=== PATIENT | female | born 1980 | race Caucasian/White ===

== ENCOUNTER → 2020-10-31 | Outpatient (CLI) | payer BC ==
[~2020-10-31] MED LIST: CETI10TA74 PO; ONDA4TAB7 PO; OXYC-325 PO; SUMA100T3 PO
== END ==
LOC: LAB 08:04
PROVIDERS: ATTEND Surgery
DX: Z01.812 Encounter for preprocedural laboratory examination (principal); K82.8 Other specified diseases of gallbladder; K82.4 Cholesterolosis of gallbladder; Z20.822 Contact with and (suspected) exposure to COVID-19
CPT/HCPCS: U0003

== ENCOUNTER 2020-11-04 07:19 | Day surgery (SDC) | payer BC ==
[~2020-11-04] VITALS: Ht 162.6 cm; Wt 75.0 kg
[~2020-11-04 07:19] MED LIST changes: +HYDROmorphone 2 MG/ML VIAL IVP PRN; +IV RINGERS,LACTATED 1000ML 1,000 ML IV SCH; +MORPHINE SULFATE 2 MG/ML VIAL. IVP PRN; -OXYC-325 PO; +PROCHLORPERAZINE 10 MG/2 ML VIAL. IVP PRN; +fentaNYL PF VIAL 100 MCG/2 ML VIAL IVP PRN
[2020-11-04] MEDS ORDERED: SURGICEL HEMOSTAT 4X8 EACH. ONE (07:27)
[2020-11-04] MEDS ORDERED: BUPIVACAINE MPF 0.5% 30 ML VIAL. ONE (07:27)
[2020-11-04] MEDS ORDERED: IOHEXOL 300 MG/ML 50 ML VIAL. ONE (07:27)
[2020-11-04] MEDS ORDERED: SCOPOLAMINE 1.5MG PATCH. TD ONE ×2 (08:19→08:45)
[2020-11-04] MEDS ORDERED: ROCURONIUM 50 MG/5 ML VIAL. ONE (08:33)
[2020-11-04] MEDS ORDERED: MIDAZOLAM HCL/PF 2 MG/2 ML VIAL. ONE (08:34)
[2020-11-04] MEDS ORDERED: KETOROLAC 30 MG/ML VIAL. ONE (08:34)
[2020-11-04] MEDS ORDERED: DEXAMETHASONE SOD PHOS 20 MG/5 ML VIAL. ONE (08:34)
[2020-11-04] MEDS ORDERED: ONDANSETRON PF 4 MG/2 ML VIAL. ONE (08:34)
[2020-11-04] MEDS ORDERED: PROPOFOL 10 MG/ML (20ML) VIAL. IV ONE (08:34)
[2020-11-04] MEDS ORDERED: LIDOCAINE 2% PF 5 ML VIAL. ONE ×2 (08:34→09:54)
[2020-11-04] MEDS ORDERED: ESMOLOL 100 MG/10 ML VIAL. IVP ONE (09:16)
--- NOTE | 2020-11-04 09:54 | RAD ---
C-arm fluoroscopy with fluoroscopic spot views Clinical indications: Intraoperative cholangiogram. Abdominal pain. Cholecystectomy. Total fluoroscopic time: 0.15 minutes. Total fluoroscopic spot images: 2. FINDINGS/ IMPRESSION: There is opacification of the extrahepatic biliary tree with free flow of contrast from t he common bile duct into the duodenum. No stone or stricture is seen. Electronically signed by: Shahram Ramos MD (11/04/2020 9:51 AM) [id number]
--- NOTE | 2020-11-04 10:00 | PDOC4 ---
Operative Note Operative Note Operative Note: Preoperative Diagnosis: Biliary dyskinesia Postoperative Diagnosis: Same Procedure: Laparoscopic cholecystectomy with intraoperative cholangiogram Surgeons: Jason [employer]ified [employer] Technician: Billie GONZALEZ Anesthesia: Gen. Estimated Blood Loss: 10 mL Specimen: Gallbladder to pathology Drains: None Complications: None Indications: The patient is a 40 year old female who was referred with biliary dyskineisa. Surgical treatment was offered by means of a laparoscopic cholecystectomy. The risks of surgery were discussed which include bleeding, infection, bile duct injury, bile leak, pain, the potential for additional surgeries or procedures. The patient understands and would like to proceed. Description: The patient was taken to the operating room and laid supine on the operating table. General anesthesia was performed. The abdomen was prepped with ChloraPrep and draped in a standard surgical fashion. A small infraumbili luz incision was made with a scalpel. The Veress needle was then inserted and a pneumoperitoneum was then created. A 5 mm trocar was then inserted and the laparoscope was introduced. In the upper midabdomen a 5 mm trocar was inserted and in the right upper quadrant two 2.3 mm mini lap graspers were inserted. The gallbladder was retracted cephalad. The cystic duct was dissected free from surrounding tissues. One clip was placed on the duct near the gallbladder junction. An opening was made in the duct and a cholangiocatheter placed within and secured with a clip. Using contrast dye and fluoroscopy an intraoperative cholangiogram was performed that appeared unremarkable. The clip and catheter were then withdrawn. Three clips were placed on the cystic duct and it was divided. The cystic artery was then identified, dissected free, doubly clipped and divided as well. The gallbladder was then mobilized away from the liver with cautery. The umbilical 5 millimeter trocar was exchanged for an 11 millimeter trocar. The gallbladder was then placed in an endoscopic bag and extracted at the umbilical trocar site. The fascia there was closed with an 0 Vicryl suture and infiltrated with 0.5% marcaine. All blood and irrigation fluid was suctioned and hemostasis was good. The remaining ports were removed and the pneumoperitoneum was relieved. The skin incisions were closed using 4-0 Monocryl suture. Steri-Strips and dressings were then applied. The patient tolerated the procedure well and was sent to the recovery room in stable condition. At the end of the case all counts were correct. JOANNA JONES MD Nov 04, 2020 10:00
--- NOTE | 2020-11-04 10:05 | DISCH ---
DISCHARGE INSTRUCTIONS Condition on Discharge Condition on Discharge: Stable Activity After Discharge Activity Instructions for Disc: Other, see below (no lifting over 20 lbs X 2 weeks) Diet after Discharge Diet after Discharge: Regular Wound Incision Care Wound/Incision Care: Other, see below (may remove bandaids and shower tomorrow, steristrips fall off on their own) Follow-Up Follow up with: Dr Jones in office in 2 weeks, call for appt [phone] JOANNA JONES MD Nov 04, 2020 10:05
[2020-11-04] MEDS ORDERED: OXYC-325 PO (10:26)
[2020-11-04] MEDS ORDERED: oxyCODONE/APAP 5/325 1 TAB TABLET PO ONE ×2 (10:30)
[2020-11-04 11:09] VITALS: BP 145/85
== END 2020-11-04 11:35 | disposition home or self-care (01) ==
LOC: SURG 07:19 → EDUNIT# 09:00 → SURG 11:35
PROVIDERS: ATTEND Surgery
DX: K82.8 Other specified diseases of gallbladder (principal); Z79.899 Other long term (current) drug therapy; Z90.710 Acquired absence of both cervix and uterus; Z98.890 Other specified postprocedural states; Z88.1 Allergy status to other antibiotic agents; Z88.8 Allergy status to other drugs, medicaments and biological substances
CPT/HCPCS: 47563; 74300; J0690; J1100; J1885; J2405; J2704; J3490; Q9967; A4213; A4314; A4364; A4452; A4657; A4930; A6219; C1887; J2250